=== PATIENT | male | born 1970 | race Two or more races ===

== ENCOUNTER 2018-05-14 18:24 | Emergency (ER) | payer OTHER ==
[~2018-05-14] VITALS: Ht 172.7 cm; Wt 98.2 kg
[2018-05-14 18:27] VITALS: BP 153/84
[2018-05-14] MEDS ORDERED: LIDOCAINE-MPF 1%, 5ML ONE (18:38)
[2018-05-14] MEDS ORDERED: DIPH,PERTUSS(ACELL),TET VAC/PF 0.5 ML IM-VACC ONE ×2 (18:39→19:00)
[2018-05-14] MEDS ORDERED: LIDOCAINE 2%, 20ML SQ ONE (19:00)
[2018-05-14] MEDS ORDERED: BACITRACIN ZINC OINT 500U/GM, 0.9 GM ONE (19:49)
== END 2018-05-14 20:12 | disposition home or self-care (01) ==
LOC: ED 20:00
DX: S61.215A Laceration without foreign body of left ring finger without damage to nail, initial encounter (principal); F17.200 Nicotine dependence, unspecified, uncomplicated; X58.XXXA Exposure to other specified factors, initial encounter; Y93.89 Activity, other specified; Y92.69 Other specified industrial and construction area as the place of occurrence of the external cause; Y99.0 Civilian activity done for income or pay
CPT/HCPCS: 12001; 90471; 90715; 96372; 99283; J3490; 12002

== ENCOUNTER 2018-05-25 18:30 | Emergency (ER) | payer OTHER ==
[~2018-05-25] VITALS: Ht 172.7 cm; Wt 96.8 kg
[2018-05-25 18:31] VITALS: BP 133/83
== END 2018-05-25 19:05 | disposition home or self-care (01) ==
LOC: ED 18:55
DX: S61.218D Laceration without foreign body of other finger without damage to nail, subsequent encounter (principal)
CPT/HCPCS: 99283